=== PATIENT | female | born 1960 | race Asian ===

== ENCOUNTER 2018-07-29 14:21 | Emergency (ER) | payer OTHER ==
[~2018-07-29] VITALS: Wt 89.0 kg
--- NOTE | 2018-07-29 16:58 | ERD ---
ER Documentation Chief Complaint Chief Complaint WEAK, NEAR SYNCOPAL EARLIER HPI The patient is a 57-year-old female, presenting to the ER because of a near syncopal episode at the [facility] today. He was sitting, felt blurry vision and stood up and had a near syncopal episode. He has similar symptoms about 3 weeks ago. He denies headache, tongue bite, fecal/urinary incontinence, neck pain, chest pain, dyspnea, abdominal pain, vomiting, dizzy, diarrhea. He does not smoke nor drink Past medical history: Hypertension Past surgical history: Left knee arthroscopy in 2013 ROS All systems reviewed and are negative except as per history of present illness. Medications Home Meds Reported Medications Gabapentin* (Gabapentin*) 100 Mg Capsule, 100 MG PO TID, #90 CAP 07/29/18 Terazosin Hcl* (Terazosin Hcl*) 5 Mg Capsule, 5 MG PO HS, CAP 07/29/18 Losartan Potassium* (Losartan Potassium*) 100 Mg Tablet, 100 MG PO DAILY, TAB 07/29/18 Amlodipine Besylate* (Norvasc*) 5 Mg Tablet, 5 MG PO DAILY, TAB 07/29/18 Albuterol Sulfate* (Ventolin HFA*) 18 Gm Hfa.aer.ad, 2 PUFF INHALATION Q4H, #1 INHALER 07/29/18 Allergies Allergies: Coded Allergies: No Known Allergy (Unverified , 07/29/18) PMhx/Soc History of Surgery: Yes (LT KNEE ) Anesthesia Reaction: No Hx Neurological Disorder: No Hx Respiratory Disorders: No Hx Cardiac Disorders: Yes (HTN ) Hx Psychiatric Problems: No Hx Miscellaneous Medical Probl: No Hx Alcohol Use: No Hx Substance Use: No Hx Tobacco Use: No Smoking Status: Never smoker Physical Exam Vitals Vital Signs Date Temp Pulse Resp B/P (MAP) Pulse Ox O2 O2 Flow FiO2 Time Delivery Rate 07/29/18 91 18 104/79 98 Room Air 17:43 (87) 07/29/18 100 18 131/111 98 Room Air 16:37 (118) 07/29/18 98.1 110 18 139/82 99 14:26 (101) Physical Exam Const: No acute distress. Head: Atraumatic. Eyes: Normal Conjunctiva. ENT: Normal External Ears, Nose and Mouth. Neck: Full range of motion. No meningismus. Resp: Clear to auscultation bilaterally. Cardio: Regular rate and rhythm. Abd: Soft, non distended, normal bowel sounds, non tender. Skin: No petechiae or rashes. Back: No midline or flank tenderness. Ext: No cyanosis, or edema. Neur: Awake and alert. No focal deficit Psych: Normal Mood and Affect. Result Diagram: 07/29/18 1732 07/29/18 1732 Results 24 hrs Laboratory Tests Test 07/29/18 17:13 07/29/18 17:32 Urine Opiates Screen NEGATIVE Urine Barbiturates NEGATIVE Urine Amphetamines Screen NEGATIVE Urine Benzodiazepines Screen NEGATIVE Urine Cocaine Screen NEGATIVE Urine Cannabinoids NEGATIVE White Blood Count 7.6 10^3/ul Red Blood Count 4.33 10^6/ul Hemoglobin 12.8 g/dl Hematocrit 39.3 % Mean Corpuscular Volume 90.8 fl Mean Corpuscular Hemoglobin 29.6 pg Mean Corpuscular Hemoglobin Concent 32.6 g/dl Red Cell Distribution Width 12.7 % Platelet Count 355 10^3/UL Mean Platelet Volume 9.1 fl Immature Granulocytes % 0.400 % Neutrophils % 63.3 % Lymphocytes % 27.5 % Monocytes % 6.2 % Eosinophils % 1.8 % Basophils % 0.8 % Nucleated Red Blood Cells % 0.0 /100WBC Immature Granulocytes # 0.030 10^3/ul Neutrophils # 4.8 10^3/ul Lymphocytes # 2.1 10^3/ul Monocytes # 0.5 10^3/ul Eosinophils # 0.1 10^3/ul Basophils # 0.1 10^3/ul Nucleated Red Blood Cells # 0.0 10^3/ul Sodium Level 142 mmol/L Potassium Level 4.1 mmol/L Chloride Level 106 mmol/L Carbon Dioxide Level 27 mmol/L Anion Gap 9 Blood Urea Nitrogen 19 mg/dl Creatinine 0.60 mg/dl Est Glomerular Filtrat Rate mL/min > 60 mL/min Glucose Level 132 mg/dl Calcium Level 9.6 mg/dl Troponin I < 0.012 ng/ml Ethyl Alcohol Level < 10.0 mg/dl [facility]/[address] [address] Radiology Main Line: [phone] DIAGNOSTIC IMAGING REPORT Patient: NATESARAHHARJITELIS : 1960 Age: 57 Sex: F [id number] DOS: 07/29/18 1718 Ordering MD: EVELIA STACY MD Location: E/R Room/Bed: PROCEDURE: CT head CLINICAL INDICATION: Syncope TECHNIQUE: Contiguous 2.5 mm axial images were obtained from the vertex to the skull base. No intravenous contrast was administered. The calculated dose length product (DLP) = 634.23 mGy-cm. The CTDlvol = 39.64 mGy. One or more of the following dose reduction techniques were used: Automated exposure control, adjustment of the mA and or KV according to patient size, or use of iterative reconstruction technique. DICOM images are available. COMPARISON: None FINDINGS: There is no evidence of acute intracranial hemorrhage or acute territorial infarct. No mass or mass effect is seen on this noncontrast study. The ventr icles and cisterns are normal in size and configuration. The gongora-white matter differentiation is within normal limits. The visualized paranasal sinuses are normally aerated. The bony calvarium is unremarkable IMPRESSION: Unremarkable unenhanced CT of the brain RPTAT: HH .Tra Francis MD, MD Date Time Electronically viewed and signed by .Tra Francis MD, MD on 07/29/2018 18:21 .W/ CC: EVELIA STACY MD [phone] EKG: Read by emergency physician Rate/Rhythm: Normal Sinus Rhythm 99 beats/min QRS, ST, T-waves: No ST elevation, no T inversion Impression: Normal EKG MEDICAL MAKING DECISION: The patient is a 57-year-old female, presenting with acute near syncopal episode, is stable for present follow-up. He has been in the ER for many hours with any recurrent symptoms The differential diagnoses considered include but are not limited to arrhythmogenic right ventricular dysplasia, Brugada syndrome, left ventricular hypertrophy, pulmonary embolism, QT abnormality, Jfxb-Wqhnfedca-Kivcg. Departure Diagnosis: Primary Impression: Near syncope Condition: Good Comments I discussed the findings with the patient. I advised the patient to follow-up with the primary physician in about 1-2 days, sooner if needed and return if any concern. Disclaimer: Inadvertent spelling and grammatical errors are likely due to EHR/dictation software use and do not reflect on the overall quality of patient care. Also, please note that the electronic time recorded on this note does not necessarily reflect the actual time of the patient encounter. EVELIA STACY MD July 29, 2018 16:58
[2018-07-29] MEDS ORDERED: ALBU18HF INHALATION (17:31)
[2018-07-29] MEDS ORDERED: AMLO5TAB4 PO (17:31)
[2018-07-29] MEDS ORDERED: TERA5CAP3 PO (17:32)
[2018-07-29] MEDS ORDERED: LOSA100T15 PO (17:32)
[2018-07-29] MEDS ORDERED: GABA100C14 PO (17:32)
[2018-07-29 20:15] VITALS: BP 110/80; PULSE 80; RESP 18
== END 2018-07-29 20:15 | disposition home or self-care (01) ==
LOC: E/R 14:21
DX: R55 Syncope and collapse (principal); I10 Essential (primary) hypertension
CPT/HCPCS: 36415; 70450; 80048; 80307; 84484; 85025; 93005

== ENCOUNTER 2018-08-22 20:05 | Emergency (ER) | payer OTHER ==
[~2018-08-22] VITALS: Ht 157.5 cm; Wt 77.1 kg
[~2018-08-22 20:05] MED LIST: ALBU18HF INHALATION; AMLO5TAB4 PO; GABA100C14 PO; LOSA100T15 PO; TERA5CAP3 PO
[2018-08-22 20:10] VITALS: Ht 157.5 cm; Wt 77.1 kg
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
[2018-08-22] MEDS ORDERED: METHOCARBAMOL 500 MG TAB PO ONE (22:30)
[2018-08-22] MEDS ORDERED: ACETAMINOPHEN 325 MG TAB PO ONE (22:30)
[2018-08-22] MEDS ORDERED: ACET500C5 PO (22:37)
[2018-08-22] MEDS ORDERED: METH500T PO (22:37)
[2018-08-23 02:15] VITALS: BP 109/77; PULSE 78; RESP 16
== END 2018-08-23 02:08 | disposition home or self-care (01) ==
LOC: EDSEX 20:05 → FTE 20:05
DX: M25.562 Pain in left knee (principal); I10 Essential (primary) hypertension; M25.561 Pain in right knee
CPT/HCPCS: 71046

== ENCOUNTER 2018-09-17 08:28 | Day surgery (SDC) | payer OTHER ==
[~2018-09-17] VITALS: Ht 157.5 cm; Wt 75.2 kg
[~2018-09-17 08:28] MED LIST changes: +ACET500C5 PO; +METH500T PO
[2018-09-17 10:06] VITALS: Ht 157.5 cm; Wt 75.2 kg
[2018-09-17] MEDS ORDERED: METOPROLOL (10:13)
[2018-09-17] MEDS ORDERED: ALEVE (10:13)
[2018-09-17] MEDS ORDERED: NAPROXEN (10:13)
[2018-09-17 10:35] VITALS: BP 127/84; PULSE 82; RESP 16
[2018-09-17] MEDS ORDERED: MIDAZOLAM 1 MG/ML 2 ML INJ ONE ×2 (11:25)
[2018-09-17] MEDS ORDERED: FENTAnyl 50 MCG/ML VIAL ONE (11:25)
== END 2018-09-17 13:22 | disposition home or self-care (01) ==
LOC: GIL 08:28
PROVIDERS: ATTEND Internal Medicine Gastroenterology
DX: Z12.11 Encounter for screening for malignant neoplasm of colon (principal); K64.8 Other hemorrhoids; I10 Essential (primary) hypertension
CPT/HCPCS: 45378; J2250; J3010